=== PATIENT | male | born 1940 | race Caucasian/White ===

== ENCOUNTER 2017-12-26 11:03 | Inpatient (IN) ==
[2017-12-26] MEDS ORDERED: SODIUM CHLORIDE 0.9% 500 ML IV STA (11:47)
[2017-12-26] MEDS ORDERED: INSULIN REGULAR 100 UNIT/ML IV STA (11:48)
[2017-12-26] MEDS ORDERED: SODIUM BICARBONATE 50 MEQ/50 ML VIAL IV STA (11:48)
[2017-12-26] MEDS ORDERED: CALCIUM CHLORIDE 1,000 MG/10 ML SYRINGE IV STA (11:48)
[2017-12-26] MEDS ORDERED: DEXTROSE 50% 25 GM/50 ML VIAL IV STA (11:48)
[2017-12-26] MEDS ORDERED: SODIUM BICARBONATE 50 MEQ/50 ML SYRINGE IV ONE (12:06)
[2017-12-26] MEDS ORDERED: DEXTROSE 50% 25 GM/50 ML SYRINGE IV ONE (12:07)
[2017-12-26 13:15] LABS: Apearance,Urine Slightly Hazy (Clear); Bilirubin,Urine Negative (Negative); Blood, Urine Negative (Negative); Glucose,Urine (UA) Negative (Negative); Hyaline Casts,Urine 14 /LPF (0-3); Ketones,Urine Negative (Negative); Mucus,Urine Occasional /LPF (Occasional); Nitrite,Urine Negative (Negative); Protein,Urine Negative; RBC,Urine 6 /HPF (0-4); Squamous Epithelial Cell,Urine Occasional /HPF (0-10); Urine Color Yellow (Yellow); Urine Specific Gravity 1.013 (1.001-1.035); Urine Urobilinogen < 2.0 EU/DL (0.2-1.0); WBC,Urine 5 /HPF (0-6)
[2017-12-26] MEDS ORDERED: HYDROmorphone 2 MG/1 ML VIAL ONE (13:23)
[2017-12-26] MEDS ORDERED: HYDROmorphone 2 MG/1 ML VIAL IV STA (13:27)
[2017-12-26] MEDS ORDERED: DOCUSATE SODIUM 100 MG CAPSULE PO PRN (13:44)
[2017-12-26] MEDS ORDERED: ONDANSETRON 4 MG/2 ML VIAL IV PRN (13:44)
[2017-12-26] MEDS ORDERED: MORPHINE 4 MG/1 ML VIAL IV PRN (13:44)
[2017-12-26] MEDS ORDERED: oxyCODONE IR 5 MG TABLET PO PRN (13:44)
[2017-12-26 16:50] LABS: Basophils % 0.3 % (0.0-0.8); Eosinophils % 0.1 % (0.00-10.9); Hematocrit 33.2 VOL% (42.0-52.0); Hemoglobin 10.6 GM/DL (14.0-18.0); Immature Granulocytes % 0.5 %; Immature Granulocytes Absolute 0.07 #; Lymphocytes # 0.8 10*3/uL (1.4-4.0); Lymphocytes % 5.7 % (21.2-54.2); Mean Corpuscular HGB Conc 31.9 GM/DL (32-36); Mean Corpuscular Hemoglobin 31 PG (27-34); Mean Corpuscular Volume 97.4 FL (87-102); Monocytes # 1.1 10*3/uL (0.11-0.8); Monocytes % 7.8 % (1.7-12.7); Neutrophils # 11.7 10*3/uL (1.4-7.4); Neutrophils % 85.6 % (38.7-73.9); Platelet Count 206 T/CUMM (130-400); Red Blood Count 3.41 MC/CUMM (3.8-5.5); Red Cell Distribution Width 17.9 % (9.3-17.3); White Blood Count 13.6 T/CUMM (4-12)
[2017-12-26 18:20] LABS: Albumin 2.1 G/DL (3.4-5.0); Bilirubin,Total 0.4 MG/DL (0.2-1.0); Osmolality,Calculated 301.7 MOS/KG (273-304); Total Protein 6.3 G/DL (6.4-8.3)
[2017-12-26 18:22] LABS: Potassium 7.1 MMOL/L (3.5-5.1)
[2017-12-26] MEDS: ACETAMINOPHEN 500 MG TABLET PO SCH ×2 (19:49→22:22)
[2017-12-26] MEDS: LACTULOSE 20 GM/30 ML UDCUP PO ONE ×2 (20:15→20:44)
[2017-12-26] MEDS: CEFTAROLINE 600 MG in SODIUM CHLORIDE 0.9% 100 ML IV SCH (20:36)
[2017-12-26] MEDS: ENOXAPARIN 30 MG/0.3 ML SYRINGE SUBCUT SCH (22:22)
[2017-12-26] MEDS ORDERED: SODIUM POLYSTYRENE SULFATE 15 GM/60 ML BOTTLE PO ONE (22:30)
[2017-12-27] MEDS: CEFTAROLINE 600 MG in SODIUM CHLORIDE 0.9% 100 ML IV SCH ×2 (04:20→16:50)
[2017-12-27 05:51] LABS: Basophils % 0.4 % (0.0-0.8); Eosinophils # 0.1 10*3/uL (0.0-0.87); Eosinophils % 0.4 % (0.00-10.9); Hematocrit 33.6 VOL% (42.0-52.0); Hemoglobin 10.6 GM/DL (14.0-18.0); Immature Granulocytes % 0.5 %; Immature Granulocytes Absolute 0.06 #; Lymphocytes # 0.8 10*3/uL (1.4-4.0); Lymphocytes % 7.5 % (21.2-54.2); Mean Corpuscular HGB Conc 31.5 GM/DL (32-36); Mean Corpuscular Hemoglobin 31 PG (27-34); Mean Corpuscular Volume 97.7 FL (87-102); Mean Platelet Volume 10.3 FL (9.6-12.0); Monocytes % 8.6 % (1.7-12.7); Neutrophils # 9.2 10*3/uL (1.4-7.4); Neutrophils % 82.6 % (38.7-73.9); Platelet Count 213 T/CUMM (130-400); Red Blood Count 3.44 MC/CUMM (3.8-5.5); Red Cell Distribution Width 17.7 % (9.3-17.3); White Blood Count 11.2 T/CUMM (4-12)
[2017-12-27 06:29] LABS: Calcium 8.1 MG/DL (8.5-10.1); Osmolality,Calculated 299.7 MOS/KG (273-304); Thyroid Stimulating Hormone 3.29 uIU/ml (0.358-3.74)
[2017-12-27 06:33] LABS: Potassium 7.2 MMOL/L (3.5-5.1)
[2017-12-27] MEDS: ACETAMINOPHEN 500 MG TABLET PO SCH ×3 (06:40→21:21)
[2017-12-27] MEDS ORDERED: CALCIUM GLUCONATE 1,000 MG in SODIUM CHLORIDE 0.9% 100 ML IV ONE (07:13)
[2017-12-27] MEDS ORDERED: DEXTROSE 50% 25 GM/50 ML VIAL IV ONE (07:13)
[2017-12-27] MEDS ORDERED: INSULIN REGULAR 100 UNIT/ML SUBCUT ONE (07:13)
[2017-12-27] MEDS ORDERED: SODIUM BICARBONATE 50 MEQ/50 ML VIAL IV ONE (07:13)
[2017-12-27] MEDS ORDERED: INSULIN REGULAR 100 UNIT/ML IV ONE (08:58)
[2017-12-27] MEDS ORDERED: GLUCAGON 1 MG VIAL IM PRN (11:12)
[2017-12-27] MEDS ORDERED: DEXTROSE 50% 25 GM/50 ML VIAL IV PRN (11:12)
[2017-12-27] MEDS: SODIUM BICARB INJ 150 MEQ in DEXTROSE 5% 850 ML IV SCH (12:00)
[2017-12-27] MEDS: FERROUS SULFATE 325 MG TABLET PO SCH (12:00)
[2017-12-27] MEDS: ATORVASTATIN 40 MG TABLET PO SCH (12:00)
[2017-12-27] MEDS ORDERED: LIDOCAINE 2% TOP JELLY 20 ML VIAL INTRAURETH ONE (12:03)
[2017-12-27] MEDS ORDERED: SKIN HEALING OINT (AQUAPHOR) 50 GM TUBE TOP PRN (17:05)
[2017-12-27] MEDS ORDERED: CHLORHEXIDINE 4% SOLN 118 ML BOTTLE TOP ONE (17:05)
[2017-12-27] MEDS ORDERED: SODIUM POLYSTYRENE SULFATE 15 GM/60 ML BOTTLE PO ONE (19:05)
[2017-12-27] MEDS: ENOXAPARIN 30 MG/0.3 ML SYRINGE SUBCUT SCH (21:22)
[2017-12-28 01:10] LABS: Basophils % 0.3 % (0.0-0.8); Eosinophils # 0.1 10*3/uL (0.0-0.87); Eosinophils % 0.6 % (0.00-10.9); Hematocrit 28.1 VOL% (42.0-52.0); Immature Granulocytes % 0.6 %; Immature Granulocytes Absolute 0.05 #; Lymphocytes # 0.9 10*3/uL (1.4-4.0); Lymphocytes % 10.3 % (21.2-54.2); Mean Corpuscular Hemoglobin 31 PG (27-34); Mean Corpuscular Volume 96.9 FL (87-102); Monocytes # 0.9 10*3/uL (0.11-0.8); Monocytes % 9.9 % (1.7-12.7); Neutrophils % 78.3 % (38.7-73.9); Platelet Count 143 T/CUMM (130-400); Red Cell Distribution Width 17.7 % (9.3-17.3)
[2017-12-28 01:44] LABS: Osmolality,Calculated 306.1 MOS/KG (273-304)
[2017-12-28 01:50] LABS: Potassium 6.5 MMOL/L (3.5-5.1)
[2017-12-28] MEDS: SODIUM BICARB INJ 150 MEQ in DEXTROSE 5% 850 ML IV SCH ×2 (03:30→06:36)
[2017-12-28] MEDS: CEFTAROLINE 600 MG in SODIUM CHLORIDE 0.9% 100 ML IV SCH ×2 (03:32→16:30)
[2017-12-28] MEDS: SODIUM POLYSTYRENE SULFATE 15 GM/60 ML BOTTLE PO SCH ×3 (03:35→14:59)
[2017-12-28] MEDS: ACETAMINOPHEN 500 MG TABLET PO SCH ×3 (06:36→21:42)
[2017-12-28 08:29] LABS: Calcium 8.2 MG/DL (8.5-10.1); Osmolality,Calculated 305.1 MOS/KG (273-304); Potassium 5.9 MMOL/L (3.5-5.1)
[2017-12-28] MEDS: FERROUS SULFATE 325 MG TABLET PO SCH (09:20)
[2017-12-28] MEDS: ATORVASTATIN 40 MG TABLET PO SCH (09:20)
[2017-12-28] MEDS: SODIUM BICARB INJ 50 MEQ in DEXTROSE 5% 950 ML IV SCH ×2 (10:10→21:42)
[2017-12-28] MEDS: ZINC OXIDE PASTE 113 GM TUBE TOP SCH ×2 (14:59→21:41)
[2017-12-29] MEDS: CEFTAROLINE 600 MG in SODIUM CHLORIDE 0.9% 100 ML IV SCH ×2 (03:50→17:00)
[2017-12-29] MEDS: ACETAMINOPHEN 500 MG TABLET PO SCH ×3 (05:27→21:55)
[2017-12-29] MEDS: SODIUM BICARB INJ 50 MEQ in DEXTROSE 5% 950 ML IV SCH (05:27)
[2017-12-29] MEDS ORDERED: HEPARIN/NACL 0.9% 2 UNITS/ML 500 ML IV ONE (07:03)
[2017-12-29] MEDS ORDERED: ALBUMIN 5% 12.5 GM/250 ML VIAL IV ONE (07:03)
[2017-12-29] MEDS ORDERED: TRANEXAMIC ACID 1,000 MG/10 ML VIAL ONE (08:11)
[2017-12-29] MEDS ORDERED: VANCOMYCIN 1,000 MG VIAL ONE (08:12)
[2017-12-29] MEDS ORDERED: oxyCODONE IR 5 MG TABLET PO PRN (09:26)
[2017-12-29] MEDS ORDERED: BISACODYL 10 MG SUPP RECTAL PRN (09:26)
[2017-12-29] MEDS ORDERED: MAGNESIUM HYDROXIDE SUSP 30 ML UDCUP PO PRN (09:26)
[2017-12-29] MEDS ORDERED: LACTULOSE 20 GM/30 ML UDCUP PO PRN (09:26)
[2017-12-29] MEDS ORDERED: PROMETHAZINE 25 MG/1 ML VIAL IM PRN (09:26)
[2017-12-29] MEDS ORDERED: diphenhydrAMINE CAP 25 MG CAPSULE PO PRN (09:26)
[2017-12-29] MEDS ORDERED: MORPHINE 4 MG/1 ML VIAL IV PRN ×2 (09:30→09:34)
[2017-12-29] MEDS ORDERED: DESFLURANE 1 UNIT/15 MINUTE INH ONE (09:55)
[2017-12-29] MEDS ORDERED: fentaNYL 100 MCG/2 ML VIAL ONE (09:55)
[2017-12-29] MEDS ORDERED: PHENYLEPHRINE 10 MG/1 ML VIAL IV ONE (09:57)
[2017-12-29] MEDS ORDERED: ETOMIDATE 40 MG/20 ML VIAL IV ONE (09:57)
[2017-12-29] MEDS ORDERED: ONDANSETRON 4 MG/2 ML VIAL ONE (09:57)
[2017-12-29] MEDS ORDERED: KETAMINE 500 MG/10 ML VIAL ONE (09:57)
[2017-12-29 09:58] LABS: Basophils # 0.1 10*3/uL (0.0-0.2); Basophils % 0.5 % (0.0-0.8); Eosinophils # 0.2 10*3/uL (0.0-0.87); Eosinophils % 1.3 % (0.00-10.9); Hematocrit 26.8 VOL% (42.0-52.0); Hemoglobin 8.6 GM/DL (14.0-18.0); Immature Granulocytes % 0.8 %; Lymphocytes % 7.7 % (21.2-54.2); Mean Corpuscular HGB Conc 32.1 GM/DL (32-36); Mean Corpuscular Hemoglobin 31 PG (27-34); Mean Corpuscular Volume 97.5 FL (87-102); Mean Platelet Volume 10.1 FL (9.6-12.0); Monocytes # 0.9 10*3/uL (0.11-0.8); Monocytes % 7.3 % (1.7-12.7); Neutrophils # 10.3 10*3/uL (1.4-7.4); Neutrophils % 82.4 % (38.7-73.9); Platelet Count 163 T/CUMM (130-400); Red Blood Count 2.75 MC/CUMM (3.8-5.5); White Blood Count 12.5 T/CUMM (4-12)
[2017-12-29] MEDS ORDERED: SODIUM CHLORIDE 0.9% 250 ML IV ONE (09:58)
[2017-12-29] MEDS ORDERED: ACETAMINOPHEN 1,000 MG/100 ML VIAL IV ONE (09:58)
[2017-12-29] MEDS ORDERED: SODIUM CHLORIDE 0.9% 100 ML IV ONE (09:58)
[2017-12-29] MEDS ORDERED: GLYCOPYRROLATE 0.4 MG/2 ML VIAL ONE (09:58)
[2017-12-29] MEDS ORDERED: HYDROCORTISONE 100 MG VIAL ONE (09:58)
[2017-12-29] MEDS ORDERED: PHENYLEPHRINE 1 MG/10 ML SYRINGE IV ONE (09:58)
[2017-12-29] MEDS ORDERED: NEOSTIGMINE 10 MG/10 ML VIAL ONE (09:58)
[2017-12-29] MEDS ORDERED: LACTATED RINGERS 1,000 ML IV ONE (09:58)
[2017-12-29] MEDS ORDERED: ROCURONIUM 100 MG/10 ML VIAL IV ONE (09:58)
[2017-12-29 10:25] LABS: Calcium 7.1 MG/DL (8.5-10.1); Osmolality,Calculated 296.4 MOS/KG (273-304); Potassium 4.3 MMOL/L (3.5-5.1)
[2017-12-29] MEDS: ZINC OXIDE PASTE 113 GM TUBE TOP SCH ×2 (12:22→20:58)
[2017-12-29] MEDS: FERROUS SULFATE 325 MG TABLET PO SCH (12:23)
[2017-12-29] MEDS: ATORVASTATIN 40 MG TABLET PO SCH (12:23)
[2017-12-29] MEDS: SODIUM CHLORIDE 0.9% 1,000 ML IV SCH (12:23)
[2017-12-29] MEDS ORDERED: SODIUM CHLORIDE 0.9% 1,000 ML IV PRN (13:46)
[2017-12-29] MEDS: ALFUZOSIN 10 MG TABLET PO SCH (20:58)
[2017-12-29] MEDS: DOCUSATE SODIUM 100 MG CAPSULE PO SCH (20:58)
[2017-12-29 22:46] LABS: Hematocrit 26.9 VOL% (42.0-52.0); Hemoglobin 8.8 GM/DL (14.0-18.0)
[2017-12-30] MEDS: CEFTAROLINE 600 MG in SODIUM CHLORIDE 0.9% 100 ML IV SCH ×2 (04:30→16:02)
[2017-12-30 06:20] LABS: Basophils % 0.2 % (0.0-0.8); Eosinophils # 0.1 10*3/uL (0.0-0.87); Eosinophils % 0.8 % (0.00-10.9); Hematocrit 26.2 VOL% (42.0-52.0); Hemoglobin 8.7 GM/DL (14.0-18.0); Immature Granulocytes % 0.7 %; Immature Granulocytes Absolute 0.06 #; Lymphocytes # 1.1 10*3/uL (1.4-4.0); Lymphocytes % 12.6 % (21.2-54.2); Mean Corpuscular HGB Conc 33.2 GM/DL (32-36); Mean Corpuscular Hemoglobin 32 PG (27-34); Monocytes # 0.8 10*3/uL (0.11-0.8); Monocytes % 9.3 % (1.7-12.7); Neutrophils # 6.4 10*3/uL (1.4-7.4); Neutrophils % 76.4 % (38.7-73.9); Platelet Count 128 T/CUMM (130-400); Red Blood Count 2.73 MC/CUMM (3.8-5.5); Red Cell Distribution Width 17.1 % (9.3-17.3); White Blood Count 8.4 T/CUMM (4-12)
[2017-12-30 06:33] LABS: Calcium 7.3 MG/DL (8.5-10.1); Osmolality,Calculated 297.6 MOS/KG (273-304); Potassium 3.8 MMOL/L (3.5-5.1)
[2017-12-30] MEDS ORDERED: MAGNESIUM SULF RIDER 4 GM in PREMIX 1 EACH IV PRN (07:35)
[2017-12-30] MEDS ORDERED: MAGNESIUM SULF RIDER 2 GM in PREMIX 1 EACH IV PRN (07:35)
[2017-12-30] MEDS: ACETAMINOPHEN 500 MG TABLET PO SCH ×3 (07:48→22:00)
[2017-12-30] MEDS: ALFUZOSIN 10 MG TABLET PO SCH (09:25)
[2017-12-30] MEDS: ATORVASTATIN 40 MG TABLET PO SCH (09:25)
[2017-12-30] MEDS: FERROUS SULFATE 325 MG TABLET PO SCH (09:25)
[2017-12-30] MEDS: ZINC OXIDE PASTE 113 GM TUBE TOP SCH ×2 (09:26→23:28)
[2017-12-30] MEDS: DOCUSATE SODIUM 100 MG CAPSULE PO SCH ×2 (09:26→20:47)
[2017-12-30] MEDS: SODIUM CHLORIDE 0.9% 1,000 ML IV SCH (15:23)
[2017-12-30] MEDS: SODIUM CHLORIDE 0.45% 1,000 ML IV SCH (16:02)
[2017-12-30] MEDS: traZODone 50 MG TABLET PO PRN (20:47)
[2017-12-31] MEDS: CEFTAROLINE 600 MG in SODIUM CHLORIDE 0.9% 100 ML IV SCH ×2 (04:27→16:07)
[2017-12-31] MEDS: ACETAMINOPHEN 500 MG TABLET PO SCH ×3 (05:56→21:33)
[2017-12-31 06:00] LABS: Basophils % 0.2 % (0.0-0.8); Eosinophils # 0.1 10*3/uL (0.0-0.87); Eosinophils % 1.4 % (0.00-10.9); Hematocrit 26.4 VOL% (42.0-52.0); Hemoglobin 8.5 GM/DL (14.0-18.0); Immature Granulocytes % 0.6 %; Immature Granulocytes Absolute 0.05 #; Lymphocytes # 1.1 10*3/uL (1.4-4.0); Lymphocytes % 13.3 % (21.2-54.2); Mean Corpuscular HGB Conc 32.2 GM/DL (32-36); Mean Corpuscular Hemoglobin 31 PG (27-34); Mean Platelet Volume 10.1 FL (9.6-12.0); Monocytes # 0.8 10*3/uL (0.11-0.8); Neutrophils % 74.5 % (38.7-73.9); Platelet Count 132 T/CUMM (130-400); Red Blood Count 2.75 MC/CUMM (3.8-5.5); Red Cell Distribution Width 16.9 % (9.3-17.3); White Blood Count 8.1 T/CUMM (4-12)
[2017-12-31 06:30] LABS: Calcium 7.3 MG/DL (8.5-10.1); Osmolality,Calculated 294.7 MOS/KG (273-304); Potassium 3.5 MMOL/L (3.5-5.1)
[2017-12-31] MEDS: DOCUSATE SODIUM 100 MG CAPSULE PO SCH ×2 (08:57→21:33)
[2017-12-31] MEDS: FERROUS SULFATE 325 MG TABLET PO SCH (08:57)
[2017-12-31] MEDS: ATORVASTATIN 40 MG TABLET PO SCH (08:57)
[2017-12-31] MEDS: ALFUZOSIN 10 MG TABLET PO SCH (08:57)
[2017-12-31] MEDS: ZINC OXIDE PASTE 113 GM TUBE TOP SCH (14:08)
[2017-12-31] MEDS: traZODone 50 MG TABLET PO PRN (21:34)
[2018-01-01] MEDS: SODIUM CHLORIDE 0.45% 1,000 ML IV SCH (00:05)
[2018-01-01] MEDS: ZINC OXIDE PASTE 113 GM TUBE TOP SCH ×3 (00:05→20:54)
[2018-01-01] MEDS: CEFTAROLINE 600 MG in SODIUM CHLORIDE 0.9% 100 ML IV SCH ×2 (03:15→16:40)
[2018-01-01] MEDS: ACETAMINOPHEN 500 MG TABLET PO SCH ×3 (04:59→21:05)
[2018-01-01 07:53] LABS: Basophils % 0.2 % (0.0-0.8); Eosinophils # 0.2 10*3/uL (0.0-0.87); Eosinophils % 2.1 % (0.00-10.9); Hematocrit 27.7 VOL% (42.0-52.0); Hemoglobin 9.3 GM/DL (14.0-18.0); Immature Granulocytes % 0.9 %; Immature Granulocytes Absolute 0.08 #; Lymphocytes % 10.1 % (21.2-54.2); Mean Corpuscular HGB Conc 33.6 GM/DL (32-36); Mean Corpuscular Hemoglobin 32 PG (27-34); Mean Corpuscular Volume 94.2 FL (87-102); Mean Platelet Volume 9.6 FL (9.6-12.0); Monocytes # 0.8 10*3/uL (0.11-0.8); Neutrophils # 7.3 10*3/uL (1.4-7.4); Neutrophils % 77.7 % (38.7-73.9); Platelet Count 159 T/CUMM (130-400); Red Blood Count 2.94 MC/CUMM (3.8-5.5); Red Cell Distribution Width 16.9 % (9.3-17.3); White Blood Count 9.4 T/CUMM (4-12)
[2018-01-01 08:08] LABS: Calcium 7.8 MG/DL (8.5-10.1); Osmolality,Calculated 290.8 MOS/KG (273-304); Potassium 3.5 MMOL/L (3.5-5.1)
[2018-01-01] MEDS: FERROUS SULFATE 325 MG TABLET PO SCH (10:20)
[2018-01-01] MEDS: ALFUZOSIN 10 MG TABLET PO SCH (10:20)
[2018-01-01] MEDS: ATORVASTATIN 40 MG TABLET PO SCH (10:20)
[2018-01-01] MEDS: DOCUSATE SODIUM 100 MG CAPSULE PO SCH ×2 (10:21→20:54)
[2018-01-02] MEDS: CEFTAROLINE 600 MG in SODIUM CHLORIDE 0.9% 100 ML IV SCH ×2 (04:07→16:49)
[2018-01-02] MEDS: ACETAMINOPHEN 500 MG TABLET PO SCH ×3 (06:16→22:24)
[2018-01-02 06:41] LABS: Basophils % 0.3 % (0.0-0.8); Eosinophils # 0.3 10*3/uL (0.0-0.87); Eosinophils % 2.9 % (0.00-10.9); Hemoglobin 8.4 GM/DL (14.0-18.0); Immature Granulocytes % 0.9 %; Immature Granulocytes Absolute 0.08 #; Lymphocytes # 0.9 10*3/uL (1.4-4.0); Lymphocytes % 9.8 % (21.2-54.2); Mean Corpuscular HGB Conc 32.3 GM/DL (32-36); Mean Corpuscular Hemoglobin 31 PG (27-34); Mean Corpuscular Volume 96.7 FL (87-102); Monocytes # 0.7 10*3/uL (0.11-0.8); Monocytes % 8.4 % (1.7-12.7); Neutrophils # 6.8 10*3/uL (1.4-7.4); Neutrophils % 77.7 % (38.7-73.9); Platelet Count 195 T/CUMM (130-400); Red Blood Count 2.69 MC/CUMM (3.8-5.5); Red Cell Distribution Width 16.7 % (9.3-17.3); White Blood Count 8.7 T/CUMM (4-12)
[2018-01-02 07:10] LABS: Calcium 7.9 MG/DL (8.5-10.1); Osmolality,Calculated 291.8 MOS/KG (273-304); Potassium 3.4 MMOL/L (3.5-5.1)
[2018-01-02] MEDS: ALFUZOSIN 10 MG TABLET PO SCH (12:04)
[2018-01-02] MEDS: FERROUS SULFATE 325 MG TABLET PO SCH (12:04)
[2018-01-02] MEDS: ATORVASTATIN 40 MG TABLET PO SCH (12:04)
[2018-01-02] MEDS: DOCUSATE SODIUM 100 MG CAPSULE PO SCH ×2 (12:05→22:22)
[2018-01-02] MEDS: ZINC OXIDE PASTE 113 GM TUBE TOP SCH ×2 (16:49→22:24)
[2018-01-03] MEDS: CEFTAROLINE 600 MG in SODIUM CHLORIDE 0.9% 100 ML IV SCH ×2 (05:33→16:14)
[2018-01-03] MEDS: ACETAMINOPHEN 500 MG TABLET PO SCH ×2 (05:33→14:55)
[2018-01-03 06:14] LABS: Basophils % 0.2 % (0.0-0.8); Eosinophils # 0.3 10*3/uL (0.0-0.87); Eosinophils % 3.6 % (0.00-10.9); Hematocrit 24.1 VOL% (42.0-52.0); Hemoglobin 7.8 GM/DL (14.0-18.0); Immature Granulocytes % 0.8 %; Immature Granulocytes Absolute 0.07 #; Lymphocytes # 0.9 10*3/uL (1.4-4.0); Lymphocytes % 9.7 % (21.2-54.2); Mean Corpuscular HGB Conc 32.4 GM/DL (32-36); Mean Corpuscular Hemoglobin 31 PG (27-34); Mean Corpuscular Volume 95.3 FL (87-102); Mean Platelet Volume 9.9 FL (9.6-12.0); Monocytes # 0.8 10*3/uL (0.11-0.8); Monocytes % 8.8 % (1.7-12.7); Neutrophils # 6.9 10*3/uL (1.4-7.4); Neutrophils % 76.9 % (38.7-73.9); Platelet Count 225 T/CUMM (130-400); Red Blood Count 2.53 MC/CUMM (3.8-5.5); Red Cell Distribution Width 16.6 % (9.3-17.3)
[2018-01-03 06:24] LABS: Calcium 7.5 MG/DL (8.5-10.1); Osmolality,Calculated 291.8 MOS/KG (273-304); Potassium 3.4 MMOL/L (3.5-5.1)
[2018-01-03] MEDS: FERROUS SULFATE 325 MG TABLET PO SCH (09:17)
[2018-01-03] MEDS: ALFUZOSIN 10 MG TABLET PO SCH (09:17)
[2018-01-03] MEDS: ATORVASTATIN 40 MG TABLET PO SCH (09:17)
[2018-01-03] MEDS: DOCUSATE SODIUM 100 MG CAPSULE PO SCH (09:17)
[2018-01-03] MEDS ORDERED: SODIUM CHLORIDE 0.9% 1,000 ML IV PRN (10:07)
[2018-01-03 11:49] VITALS: BP 113/55
[2018-01-03] MEDS: ZINC OXIDE PASTE 113 GM TUBE TOP SCH (12:30)
== END 2018-01-03 14:20 | DRG 470 ==
LOC: N.ED 11:03 → SUATTDRO 12:30 → N.EDINP 12:30 → N.3E 14:43
PROVIDERS: ADMIT Internal Medicine; ATTEND Internal Medicine